=== PATIENT | male | born 1960 | race Caucasian/White ===

== ENCOUNTER 2024-06-14 06:29 | Outpatient (RCR) | payer MEDICARE, SELFPAY | END 2024-06-14 23:59 | disposition home or self-care (01) | LOC: RPT 06:29 | PROVIDERS: ATTENDING PHYSICIAN Family Medicine | DX: M54.50 Low back pain, unspecified (principal); M47.896 Other spondylosis, lumbar region; Z73.6 Limitation of activities due to disability | CPT/HCPCS: 97110; 97162 ==

== ENCOUNTER 2024-06-23 06:08 | Outpatient (RCR) | payer MEDICARE, SELFPAY | END 2024-07-12 09:51 | disposition home or self-care (01) | LOC: RPT 06:08 | PROVIDERS: ATTENDING PHYSICIAN Family Medicine | DX: M47.896 Other spondylosis, lumbar region (principal); Z73.6 Limitation of activities due to disability; M54.50 Low back pain, unspecified | CPT/HCPCS: 97110 ==

== ENCOUNTER → 2024-07-19 15:36 | Outpatient (REF) | payer MEDICARE, SELFPAY | LOC: RAD 15:36 | PROVIDERS: ATTENDING PHYSICIAN Specialist; FAMILY PHYSICIAN Family Medicine | DX: N39.44 Nocturnal enuresis (principal) | CPT/HCPCS: 76770 ==

== ENCOUNTER 2025-02-03 06:24 | Day surgery (SDC) | payer MEDICARE, SELFPAY | END 2025-02-03 11:39 | disposition home or self-care (01) | LOC: GI 06:24 | PROVIDERS: ATTENDING PHYSICIAN Internal Medicine | DX: Z12.11 Encounter for screening for malignant neoplasm of colon (principal); Z86.0100 Personal history of colon polyps, unspecified | CPT/HCPCS: G0105 ==

== ENCOUNTER 2025-02-04 06:20 | Day surgery (SDC) | payer MEDICARE, SELFPAY | END 2025-02-04 15:00 | disposition home or self-care (01) | LOC: GI 06:20 | PROVIDERS: ATTENDING PHYSICIAN Internal Medicine Gastroenterology | DX: Z12.11 Encounter for screening for malignant neoplasm of colon (principal); K64.8 Other hemorrhoids; Z86.0100 Personal history of colon polyps, unspecified | CPT/HCPCS: G0105 ==

== ENCOUNTER 2025-07-21 15:06 | Outpatient (RCR) | payer MEDICARE, SELFPAY | END 2025-07-21 23:59 | disposition home or self-care (01) | LOC: ROT 15:06 | PROVIDERS: ATTENDING PHYSICIAN Orthopaedic Surgery Hand Surgery; FAMILY PHYSICIAN Family Medicine | DX: S60.222D Contusion of left hand, subsequent encounter (principal); Z73.6 Limitation of activities due to disability; M79.645 Pain in left finger(s); R60.0 Localized edema; X58.XXXD Exposure to other specified factors, subsequent encounter | CPT/HCPCS: 97010; 97018; 97022; 97110; 97140; 97166; 97535 ==

== ENCOUNTER 2025-08-16 11:23 | Outpatient (RCR) | payer MEDICARE, SELFPAY | END 2025-08-16 23:59 | disposition home or self-care (01) | LOC: ROT 11:23 | PROVIDERS: ATTENDING PHYSICIAN Orthopaedic Surgery Hand Surgery; FAMILY PHYSICIAN Family Medicine | DX: S60.222D Contusion of left hand, subsequent encounter (principal); Z73.6 Limitation of activities due to disability; M79.645 Pain in left finger(s); R60.0 Localized edema; X58.XXXD Exposure to other specified factors, subsequent encounter | CPT/HCPCS: 97010; 97018; 97022; 97110; 97140 ==

== ENCOUNTER 2025-08-23 17:19 | Outpatient (RCR) | payer MEDICARE, SELFPAY | END 2025-08-23 23:59 | disposition home or self-care (01) | LOC: ROT 17:19 | PROVIDERS: ATTENDING PHYSICIAN Orthopaedic Surgery Hand Surgery; FAMILY PHYSICIAN Family Medicine | DX: S60.222D Contusion of left hand, subsequent encounter (principal); Z73.6 Limitation of activities due to disability; M79.645 Pain in left finger(s); R60.0 Localized edema; X58.XXXD Exposure to other specified factors, subsequent encounter | CPT/HCPCS: 97018; 97110; 97140 ==